=== PATIENT | male | born 1975 | race Caucasian/White ===

== ENCOUNTER 2018-07-19 13:29 | Emergency (ER) | payer OTHER ==
[2018-07-19 13:36] VITALS: BP 128/73
[2018-07-19] MEDS ORDERED: HYDROCODONE/ACETAMINOPHEN 5-325 MG TABLET PO ONE (13:41)
--- NOTE | 2018-07-19 13:43 | ER Document Report ---
ED Medical Screen (RME) - General Chief Complaint: Arm Injury Stated Complaint: ARM INJURY Time Seen by Provider: 07/19/18 13:41 Mode of Arrival: Ambulatory Information source: Patient TRAVEL OUTSIDE OF THE [place] IN LAST 30 DAYS: No - HPI Patient complains to provider of: R arm pain Onset: Just prior to arrival - pt. hit on R FA during baseball game with ball - Related Data Allergies/Adverse Reactions: Sulfa (Sulfonamide Antibiotics) Allergy (Verified 07/19/18 13:35) Physical Exam - Vital signs Vitals: Temp Pulse Resp BP 98.4 F 101 H 16 128/73 H 07/19/18 13:33 07/19/18 13:33 07/19/18 13:33 07/19/18 13:33 Course - Vital Signs Vital signs: Temp Pulse Resp BP Pulse Ox 98.4 F 101 H 16 128/73 H 07/19/18 13:33 07/19/18 13:33 07/19/18 13:33 07/19/18 13:33
--- NOTE | 2018-07-19 14:35 | RADIOLOGY REPORT (SQ) ---
EXAM DESCRIPTION: FOREARM RIGHT COMPLETED DATE/TIME: 07/19/2018 2:29 pm REASON FOR STUDY: swelling to the right arm COMPARISON: None. NUMBER OF VIEWS: Two views. TECHNIQUE: Two radiographic images acquired of the right forearm, including elbow and wrist in at le ast one projection. LIMITATIONS: None. FINDINGS: MINERALIZATION: Normal. BONES: No acute fracture. No worrisome bone lesions. SOFT TISSUES: No radiopaque foreign body. Subcutaneous edema along the dorsal and radial aspect of t he distal right forearm OTHER: No other significant finding. IMPRESSION: Soft tissue swelling. No fracture. No radiopaque foreign body TECHNICAL DOCUMENTATION: JOB ID: [id number] [employer]- All Rights Reserved Reading location - IP/workstation name: [email or web address]
--- NOTE | 2018-07-19 20:45 | ER Document Report ---
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 Patient states he was the pitcher of a baseball game when he was in the right forearm with the baseball. He reports being right hand dominant. Patient recently started immunotherapy in February and reports having it once a month. His oncologist is Dr. Salamanca in [place]. TRAVEL OUTSIDE OF THE [place] 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 Bronchoscopy in 2016 Review of Systems - Review of Systems Constitutional: No symptoms reported EENT: No symptoms reported Cardiovascular: No symptoms reported Respiratory: No symptoms reported Gastrointestinal: No symptoms reported Genitourinary: No symptoms reported Male Genitourinary: No symptoms reported Musculoskeletal: See HPI Skin: No symptoms reported Hematologic/Lymphatic: No symptoms reported Neurological/Psychological: No symptoms reported -: Yes All other systems reviewed and negative Physical Exam - Vital signs Vitals: Temp Pulse Resp BP 98.4 F 101 H 16 128/73 H 07/19/18 13:33 07/19/18 13:33 07/19/18 13:33 07/19/18 13:33 - Notes Notes: GENERAL: Alert, interacts well. No acute distress. HEAD: Normocephalic, atraumatic. EYES: Pupils equal, round, and reactive to light. Extraocular movements intact. ENT: Oral mucosa moist, tongue midline. NECK: Full range of motion. Supple. Trachea midline. LUNGS: Clear to auscultation bilaterally, no wheezes, rales, or rhonchi. No respiratory distress. HEART: Regular rate and rhythm. No murmurs, gallops, or rubs. ABDOMEN: Soft, non-tender. Non-distended. Bowel sounds present in all 4 quadrants. No guarding, rigidity, or rebound. EXTREMITIES: Moves all 4 extremities spontaneously. Contusion and swelling to the dorsal aspect of right forearm, tender to palpation. No obvious deformity. NEUROLOGICAL: Alert and oriented x3. Normal speech. PSYCH: Normal affect, normal mood. SKIN: Warm, dry, normal turgor. No rashes or lesions noted. Course - Vital Signs Vital signs: Temp Pulse Resp BP Pulse Ox 98.4 F 101 H 16 128/73 H 07/19/18 13:33 07/19/18 13:33 07/19/18 13:33 07/19/18 13:33 - Diagnostic Test Radiology reviewed: Image reviewed, Reports reviewed - Right forearm X-ray does not show a fracture. It does show soft tissue swelling. Discharge - Discharge Clinical Impression: Forearm contusion Qualifiers: Encounter type: initial encounter Laterality: right Qualified Code(s): S50.11XA - Contusion of right forearm, initial encounter Disposition: HOME, SELF-CARE I personally performed the services described in the documentation, reviewed and edited the documentation which was dictated to the scribe in my presence, and it accurately records my words and actions.
== END 2018-07-19 14:48 | disposition home or self-care (01) ==
LOC: ER 13:29
DX: S50.11XA Contusion of right forearm, initial encounter (principal); W21.03XA Struck by baseball, initial encounter; Y93.64 Activity, baseball; C43.9 Malignant melanoma of skin, unspecified; C78.02 Secondary malignant neoplasm of left lung; C78.01 Secondary malignant neoplasm of right lung; Z79.899 Other long term (current) drug therapy; Z88.2 Allergy status to sulfonamides
CPT/HCPCS: 99283